=== PATIENT | male | born 1950 | race Caucasian/White ===

== ENCOUNTER 2017-06-22 13:35 | Emergency (ER) | payer MEDICARE, OTHER ==
[~2017-06-22] VITALS: Ht 180.3 cm; Wt 97.3 kg
[~2017-06-22 13:35] MED LIST: ANTIBIOTIC PO; IBUP100T6 PO; LOSA50TA6 PO; MULT-658 PO; STEROIDS PO
[2017-06-22 14:30] LABS: HEMATOCRIT 50.8 % (39.2-51.8); HEMOGLOBIN 17.2 g/dL (13.7-18.0); WHITE BLOOD COUNT 10.6 x10^3/uL (3.4-10)
[2017-06-22] MEDS ORDERED: SODIUM CHLORIDE FLUSH 10ML SYR IVF ONE (14:30)
[2017-06-22 14:41] LABS: ASPARTATE AMINO TRANSFERASE 16 U/L (15-37); BLOOD UREA NITROGEN 17 mg/dL (7-18)
[2017-06-22 14:48] LABS: IS PT STATUS REG ER OR PRE ER? YES
[2017-06-22] MEDS ORDERED: WARF6TAB PO (14:48)
[2017-06-22] MEDS ORDERED: WARF10TA PO (14:48)
[2017-06-22 15:39] VITALS: BP 171/91
== END 2017-06-22 16:34 | disposition home or self-care (01) ==
LOC: ED 14:16
DX: G45.9 Transient cerebral ischemic attack, unspecified (principal); I10 Essential (primary) hypertension; Z79.01 Long term (current) use of anticoagulants
CPT/HCPCS: 36415; 70450; 71010; 80053; 84484; 85025; 85610; 93005; 99285